=== PATIENT | female | born 1930 | race Caucasian/White ===

== ENCOUNTER 2017-03-30 12:08 | Inpatient (IN) | payer MEDICARE, BC ==
--- NOTE | ~2017-03-30 | XA166 ---
[facility] A Service of [facility] & [facility] RADIOLOGY TEXT RESULTS PATIENT: JO ANN JUAN LOCATION: A - : [birth year] UNIT #: [id number] AGE: [address]: Catia Goel MD SEX: F ORDER DR: [id number] [facility] [address] [place], [place] [address] [id number] I MR#: [id number] Acc #: [id number] NAME: JO ANN JUAN. : 1930 SEX: F STUDY DATE/TIME: 03/31/2017 9:05 UNIT: C3A U ROOM: [facility] STUDY DESCRIPTION: XA PICC Line Placement WO Port Attending Physician: Catia Goel M.D. Ordering Physician: Fern Escoto M.D. Primary Care Physician: Reyna Silva A.P.R.N. MEDICAL IMAGING REPORT This report is preliminary unless electronic signature is present EXAM PICC line placed under ultrasound fluoroscopy HISTORY Long-term IV antibiotic therapy. PRE-PROCEDURE The procedure was explained to the patient and/or patient key account representative including risks, benefits, potential complications and potential for alternative forms of treatment. Informed consent was obtained, and prior to initiating the procedure a formal timeout procedure was performed. PROCEDURE Using full standard sterile barrier technique, including caps, gowns, gloves, masks, as well as sterile skin preparation and standard sterile draping, the right arm was prepped and draped in the usual fashion, and real-time sterile ultrasound guidance was used to localize an arm vein and to confirm vessel patency. Puncture was in the right brachial vein. A hard copy ultrasound image was recorded. After local anesthesia with 1% Xylocaine, the vein was punctured using real-time sterile ultrasound guidance, and an 0.018 guidewire was advanced into the superior vena cava, using fluoroscopic guidance. A 5 Citizen Of [place] dual-lumen PICC was then measured and trimmed to 31 cm and deployed with the tip positioned in the superior vena cava. The position of the line was documented with a radiographic image. The line was secured in place with an adhesive dressing and an antibiotic patch was applied. Total fluoro time was 0.2 minutes. 1 mGy air kerma. A single spot radiograph was obtained. IMPRESSION Successful placement of a 5 Citizen Of [place] dual-lumen PowerPICC via the right arm under ultrasound and fluoroscopic guidance. The tip of the PICC is in STS. [facility] A Service of [facility] RADIOLOGY TEXT RESULTS PATIENT: JO ANN JUAN LOCATION: C3A 301-01 : [birth year] UNIT #: [id number] AGE: [address]: Catia Goel MD SEX: F ORDER DR: good position in the superior vena cava. Dictated by... Teofilo Rudolph M.D. THIS IS AN ELECTRONICALLY VERIFIED REPORT Teofilo Rudolph M.D. at 04/03/2017 9:18 AM TRIXIE/chris TD: 03/31/2017 15:30 JOB #: [id number] MEDICAL IMAGING REPORT Page 1 of 1 COPY
--- NOTE | ~2017-03-30 | CR2 ---
[facility] A Service of [facility] RADIOLOGY TEXT RESULTS PATIENT: JO ANN JUAN LOCATION: [facility] 301- : [birth year] UNIT #: [id number] AGE: [address]: Catia Goel MD SEX: F ORDER DR: [id number] [place] [address] [facility] [place], [place] [address] [id number] I MR#: [id number] Acc #: [id number] NAME: JO ANN JUAN. : 1930 SEX: F STUDY DATE/TIME: 04/01/2017 5:42 [facility]: [facility] STUDY DESCRIPTION: CR Abdomen Acute Series Attending Physician: Catia Goel M.D. Ordering Physician: Fern Escoto M.D. Primary Care Physician: Reyna Silva A.P.R.N. MEDICAL IMAGING REPORT This report is preliminary unless electronic signature is present EXAM Acute abdominal series in 3 views 04/01/2017 COMPARISON 03/31/2017. CLINICAL HISTORY Abdominal pain for 3 days, nausea, vomiting. FINDINGS Persistent dilatation of small bowel in the central midabdomen, minimal colonic gas, question incomplete small bowel obstruction. No interval change since 03/31/2017. Dictated by... Larry Foreman M.D. THIS IS AN ELECTRONICALLY VERIFIED REPORT Larry Foreman M.D. at 04/01/2017 2:12 PM DIANA/emily TD: 04/01/2017 07:28 JOB #: [id number] MEDICAL IMAGING REPORT Page 1 of 1 COPY
--- NOTE | ~2017-03-30 | CO ---
Unit #: [id number] #: [id number] Patient: JO ANN JUAN [id number] [address] [place], [place] [address] [id number] I MR#: [id number] NAME: JO ANN JUAN. ROOM: 301 Age: 86 Sex: F Admission Date: 03/30/2017 : 1930 Attending Physician: Catia Goel M.D. Primary Care Physician: Reyna Silva A.P.R.N. Consultation Date: 04/02/2017 CONSULTATION REPORT REASON FOR CONSULT SVT. HISTORY OF PRESENT ILLNESS This is an 86-year-old female, new to our group with the past medical history of sick sinus syndrome, status post permanent pacemaker by Dr. Gunter. The patient was previously admitted to [facility] in 2012 following a fall versus near syncopal episode. She fractured her hip and underwent hip surgery. She is a DNR. She lives alone and uses a walker to ambulate. 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 She presented to the hospital on 03/30/2017 with complaints of nausea and vomiting. She has also had generalized abdominal pain. There are also reports of dark emesis. She denies fever or chills. In the emergency department, her pulse is 95 with the blood pressure of 143/72. CT of the abdomen revealed findings concerning for small bowel obstruction with inflammatory changes in the small bowel. She was given Zosyn in the emergency department, as well as 1 L of normal saline, 4 mg of morphine and 4 mg of Zofran. She was admitted for further evaluation. She was noted to have episodes of paroxysmal supraventricular tachycardia on telemetry and Cardiology was consulted. There are no reports of chest pain. She denies shortness of breath, PND, or orthopnea. She has had a history of dizziness and near syncope, but not recently. PAST MEDICAL HISTORY 1. Sick sinus syndrome, status post permanent pacemaker in 2012. 2. Admission to [facility] in 2012 following a fall versus near syncopal episode. Underwent surgery for hip fracture. 3. Nonsmoker. PAST SURGICAL HISTORY 1. Hip surgery. 2. Permanent pacemaker. HOME MEDICATIONS None. ALLERGIES No known drug allergies. SOCIAL HISTORY The patient lives alone. She ambulates with a walker. There are no reports of alcohol or illicit drug use. Unit #: [id number] #: [id number] Patient: JO ANN JUAN FAMILY HISTORY Significant for lung cancer. REVIEW OF SYSTEMS A 10-point review of systems negative except for details above in HPI. PHYSICAL EXAMINATION VITAL SIGNS: Temperature 98.5, pulse 74, blood pressure 144/79. CONSTITUTIONAL: This is an 86-year-old female, in no acute distress. SKIN: Warm and dry. NECK: Supple. No jugular vein distention. No carotid reflux. Normal carotid upstrokes. No carotid bruits auscultated. HEART: S1 and S2. Regular rate and rhythm. No murmurs, rubs, or gallops. LUNGS: Bilateral breath sounds. Have good air entry throughout lung colon. Respirations are even and nonlabored. ABDOMEN: Soft, nontender, and nondistended. Positive bowel sounds auscultated x4 quadrants. No ascites noted. EXTREMITIES: Lower extremities have no pretibial pitting edema. DP and PT pulses are 2+. Capillary refill is less than 2 seconds. DIAGNOSTIC STUDIES LABORATORY RESULTS: White blood cell count 8.5, hemoglobin 10.6, hematocrit 33.2, platelets 264. Sodium 140, potassium 3.6, chloride 110, CO2 of 24, BUN 18, creatinine 0.6, glucose 151, magnesium 1.9, calcium 7.9, phosphorus 2.3, total protein 6, albumin 2.7, total bilirubin 0.9, direct bilirubin 0.3, indirect bilirubin 1.3, AST 20, ALT 18, alkaline phos 85, amylase 17, lipase 15. Troponin 0.06 and 0.06. Lactic acid 1.6. Triglycerides 151, TSH 12.52. Urinalysis 1+ protein. IMAGING STUDIES: CT of the abdomen and pelvis with contrast on 03/30/2017 revealed 12 to 13 cm thickened and inflamed segment of small bowel in the mid to lower abdomen. Findings suggestive of inflammatory bowel disease versus infectious process. There is a small bowel obstruction proximal to the segment of the small bowel loops measuring up to 3.7 cm. Focally inflamed structure just inferior to the gallbladder fossa along the second portion of duodenum. This is favored to represent focal duodenal diverticulitis. There are other uncomplicated diverticula in the segment between the duodenum and the head of the pancreas. It is also possible that this structure could represent irregular gallbladder, correlate with the patient's operative history. Right upper quadrant ultrasound reveals gallbladder not clearly visualized. No biliary dilation. Liver unremarkable. X-ray of the abdomen on 03/31/2017 reveals NG tube in the proximal stomach. Dilated loops of small bowel in the central and right abdomen with colonic gas present. Radionuclide biliary scan on 03/31/2017 is abnormal. Please see details in report. X-ray of the abdomen on 04/01/2017 reveals persistent dilatation of the small bowel. CARDIOVASCULAR STUDIES: Electrocardiogram reveals sinus rhythm with PAC. Left bundle-branch block. T-wave abnormality in the lateral leads. Unit #: [id number] #: [id number] Patient: JO ANN JUAN IMPRESSION 1. Small-bowel obstruction. 2. Status post permanent pacemaker for sick sinus syndrome. 3. Paroxysmal supraventricular tachycardia. 4. Hypothyroidism. PLAN 1. The patient presented to the hospital for abdominal pain. She was admitted for small bowel obstruction. 2. She was found to have paroxysmal supraventricular tachycardia on telemetry and Cardiology was consulted. 3. 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 She is feeling better and is requesting to be discharged home. Again, she has been advised to consider thyroid supplement and small dose of beta blockers, but she refuses. 4. No further cardiac workup is planned. The patient can go home from a cardiac standpoint. Dictated by... Lilo Mac APRN for Cheyanne Burton TD: 04/05/2017 13:29 JOB #: [id number] CONSULTATION REPORT Page 1 of 1 X X CONSULTATION REPORT
--- NOTE | ~2017-03-30 | A ---
[facility] Nutrition Therapy DATE: 04/01/17 Patient: JO ANN JUAN Physician: ANYI Address: [address] Room/Bed: [address] [place] [address], Zip: [place] [address] Admit Date: 03/30/17 Date of : [birth year] Height: 5 7 Weight: 136 62 NUTRITIONAL ASSESSMENT: REASON: TPN consult Admitting dx: 86 y/o female admitted with N/V and no BM x 5 days, found to have SBO PMH: Pacemaker Anthropometrics: Ht: 67", Wt: 62 kg (136 lbs), BMI: 21 (normal) Labs: Glucose 181, BUN 24, Phos 2.1, glucose POC 168-199, Triglycerides 151 Meds: Lei prn, MgSO4, Kcl, Phenol-sodium, PPI, Mylanta, IV Abx, NSIV @ 60 ml/hr I/O & Bowel function: Last BM 03/28 (small), - flatus, abdomen firm/distended, NGT to LWS Skin Integrity: No issues, no edema Estimated Nutrition Needs: 4732-1343 kcals/day (25-30 kcals/kg) 62-74 g protein/day (1-1.2 g/kg) Fluids consistent with kcal needs or per MD Assessment: Chart reviewed, events noted. See admitting dx and PMH as stated above. Pt found to have SBO on CT scan and duodenal diverticulitis vs irregular gallbladder. She normally follows a regular diet at home however has not eaten much in the past 5 days due to her GI sx, which worsened with oral intake. She scored 1 point on the malnutrition risk screen for eating poorly, no past weights available and she is unsure of any weight loss. Hyponatremia on admission, now resolved. She has an NGT to LWS, - flatus at this time. MD ordered to start TPN, she is currently on a clear liquid diet as of today, was NPO 6/7-8. Note hypophosphatemia and hyperglycemia. See RD recs below, will follow. Dx: Inadequate energy intake r/t clinical diagnosis AEB NPO/clear liquids x 3 days, need for parenteral nutrition support. Intervention: TPN, Phos replacement Monitoring, Evaluation and Goals: 1. Tolerance of oral diet advancement without significant s/s of N/V/abdominal pain. 2. Nutrition support consistent with estimated needs. 3. Labs WNL (glucose < 200, lytes & triglycerides WNL). 4. Prevent unintentional weight loss. [facility] Nutrition Therapy DATE: 04/01/17 Patient: JO ANN JUAN Physician: ANYI Address: [address] [place] [address] [address] Room/Bed: [address] [place] [address], Zip: [place] [address] Admit Date: 03/30/17 Date of : [birth year] Height: 5 7 Weight: 136 62 5. Promote regular BM's. Monitor: Per protocol, criteria to determine if above goals met Recommendations: 1. Replace Phos before starting TPN. 2. Advance oral diet as tolerated to GI soft. 3. RD agrees TPN is indicated, recommendations are as follows: Standard 25% dextrose, 5% AA solution; start @ 30 ml/hr and increase by 10 ml q 6 hours until goal rate of 55 ml/hr is reached. Add 20% 250 ml lipids q 48 hours to prevent fatty acid deficiency and help meet kcal needs. This TPN regimen will provide: -1122 dextrose kcals (GUR = 3.7) -66 g protein (1.1 g/kg; meets estimated needs) =1386 total kcals on non-lipid days / 1886 total kcals on lipid days (average 3334-4516 total kcals/day based on receiving lipids 3-4 x per week, which meets the patient's estimated kcal needs) 4. Closely monitor lytes and aggressively replete to WNL prn. Monitor triglycerides and glucose and consider adding insulin regimen if hyperglycemia persists. 5. IVF per . RD will follow hospital course Moderate-severe nutrition risk Respectfully, Diana Montano, MARCELINO, LD [employer] [facility] [employer] [place] [facility] cc: client file
--- NOTE | ~2017-03-30 | HP ---
Unit #: [id number] #: [id number] Patient: JO ANN JUAN [id number] [facility] [address] [facility]. [place], [place] [address] [id number] I MR#: [id number] NAME: JO ANN JUAN. ROOM: 301 Age: 86 Sex: F Admission Date: 03/30/2017 : 1930 Attending Physician: Fern Escoto M.D. Primary Care Physician: Reyna Silva A.P.R.N. HISTORY AND PHYSICAL CHIEF COMPLAINT Nausea and vomiting. HISTORY OF PRESENT ILLNESS The patient is an 86-year-old female with a past medical history of pacemaker placement who presented to the emergency department for evaluation of the above. The patient states that she was in her usual state of health until March 26 when she developed abdominal cramping. She states that it has been "everywhere." It has been somewhat intermittent in nature. It is exacerbated by eating. There are no alleviating factors. She has had nausea and vomiting. She reports four to five bouts of dark emesis within the past 24 hours. She had a small bowel movement yesterday morning. She has not passed any gas since that time. She denies any fever and no cough or cold symptoms. She denies any burning with urination. In the emergency department, initial pulse and blood pressure were 95 and 143/72, respectively. CT of the abdomen showed findings concerning for small bowel obstruction with inflammatory changes of the small bowel. She was given Zosyn in the emergency department, as well as one liter of normal saline, 4 mg of morphine, and 4 mg of Zofran. She is being admitted to [facility] for evaluation and further treatment. PAST MEDICAL HISTORY 1. Admission to [facility] in 2012 following a fall versus near syncopal episode. She apparently fractured her hip and underwent surgery during that admission. She also underwent pacemaker placement during that admission. 2. Presumably sick sinus syndrome status post pacemaker placement followed by Dr. Gunter. PAST SURGICAL HISTORY 1. Hip surgery. 2. Pacemaker placement. SOCIAL HISTORY The patient lives alone. She walks with a walker. There is no tobacco or alcohol use. Her code status is a Do Not Resuscitate. FAMILY HISTORY Notable for her dad having lung cancer. Unit #: [id number] #: [id number] Patient: JO ANN JUAN ALLERGIES No known allergies. HOME MEDICATIONS None. REVIEW OF SYSTEMS A complete review of systems is negative except as indicated in the History of Present Illness. PHYSICAL EXAMINATION VITAL SIGNS: Temperature is 98.6, pulse 75, respirations 16, blood pressure 143/72, and oxygen saturation is 95% on room air. GENERAL: Patient is a female who is awake, alert, and in no acute distress. HEENT: Head is atraumatic. Mucous membranes are moist. NECK: Supple. Trachea is midline. CARDIOVASCULAR: Regular rate and rhythm. LUNGS: Clear to auscultation bilaterally with no increased work of breathing. ABDOMEN: Mildly distended. Bowel sounds are somewhat decreased. She is mildly tender to palpation throughout. EXTREMITIES: Nontender with no pedal edema. NEUROLOGIC: Patient is awake and alert. She follows commands. PSYCHIATRIC: Mood and affect are normal. Patient is cooperative. SKIN: Skin of examined areas is warm and dry. DIAGNOSTIC STUDIES LABORATORY: Complete blood count notable for white blood cell count of 13.3. Comprehensive metabolic panel notable for sodium of 133, chloride 94, BUN and creatinine 45 and 1, respectively, alkaline phosphatase 125, and albumin 3.3. Amylase and lipase are normal. IMAGING: CT of the abdomen and pelvis shows a small bowel obstruction with inflammation involving the small bowel. Possible duodenal diverticulitis versus irregular gallbladder. ASSESSMENT The patient is an 86-year-old female with: 1. Small bowel obstruction. The patient received one liter of normal saline in the emergency department, as well as morphine and Zofran. She has never had any intraabdominal surgeries. 2. Duodenal diverticulitis versus irregular gallbladder. The patient received Zosyn in the emergency department. 3. Sepsis. 4. Mild hyponatremia with a sodium of 133. 5. Status post pacemaker placement presumably for sick sinus syndrome. PLAN 1. Admit to intermediate level. 2. N.p.o. 3. Normal saline at 75 mL/hour. 4. NG tube to low wall suction. 5. P.r.n. morphine. 6. P.r.n. Zofran. 7. Consult [facility] regarding small bowel obstruction. 8. Blood cultures x2. Unit #: [id number] #: [id number] Patient: JUAN,JO ANN B 9. Sepsis protocol with lactic acid. 10. Zosyn pending further workup. 11. Right upper quadrant ultrasound for further evaluation of possible abnormal gallbladder. 12. Check EKG and cardiac enzymes. 13. Repeat labs in the morning. 14. SCDs for DVT prophylaxis. 15. Additional workup and consultants based on above. 16. Regarding code status, the patient is a Do Not Resuscitate. 1. Dictated by Fern Escoto M.D. AW/rosalva TD: 03/30/2017 19:01 JOB #: [id number] HISTORY AND PHYSICAL Page 1 of 1 X Fern Escoto MD X HISTORY AND PHYSICAL
--- NOTE | ~2017-03-30 | DS ---
Unit #: [id number] #: [id number] Patient: JO ANN JUAN [id number] [place], [place] [address] [id number] I MR#: [id number] NAME: JO ANN JUAN. ROOM: 301 Age: 86 Sex: F Admission Date: 03/30/2017 : 1930 Discharge Date: Attending Physician: Catia Goel M.D. Primary Care Physician: Reyna Silva A.P.R.N. DISCHARGE SUMMARY DISCHARGE DIAGNOSES 1. Small bowel obstruction. 2. Questionable acute cholecystitis versus duodenal diverticulitis. 3. Sick sinus syndrome, status post pacemaker. 4. Hypothyroidism. 5. Hypophosphatemia. 6. Questionable memory loss. 7. Hypocalcemia. 8. Mild protein malnutrition. 9. Underweight with moderate calorie malnutrition. CONSULTATION 1. Dr. Ribera. 2. Dr. Rojo. PROCEDURES None. LAB DATA Sodium 140, potassium 3.6, creatinine 0.6, calcium 7.9, phosphorus 2.3, magnesium 1.9, WBC 8.5, hemoglobin 10.6, platelets 264. HIDA scan shows abnormal examination with abnormal non-filling of the gallbladder concerning for acute cholecystitis. KUB shows persistent dilatation and complete small bowel obstruction possible. TSH 12.52. CT of the abdomen and pelvis shows 12 to 13 mm thickened small bowel present. Also, inflamed duodenum, likely duodenal diverticulitis. ALLERGIES None. DISCHARGE MEDICATIONS 1. Zofran 4 mg q.6 p.r.n. nausea. 2. Lortab 5 mg p.o. q.4 p.r.n. pain. HOSPITALIZATION COURSE 86-year-old admitted because of nausea and vomiting. Unit #: [id number] #: [id number] Patient: JO ANN JUAN Acute cholecystitis with nausea and vomiting: Also, patient has partial small bowel obstruction and likely duodenal diverticulitis. The patient was seen by [facility]. Patient was kept NPO and NG-suction given but patient refused NG suctioning. Currently, she is refusing any kind of surgery. She does not want any antibiotics. She does not want any medications. 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 She wants to go home. Sister is at bedside. They agree for her to go home with hospice. I talked to rn case manager hospice. She is going to arrange hospice to come visit her at home. Patient refusing all medications. I am going to give Zofran and Lortab p.r.n. to take home. She is currently DNR and hospice care. Sick sinus syndrome: The patient was seen by cardiology. Hypothyroidism: Patient is refusing any medicine now. She was on Synthroid. Hypophosphatemia: Replaced with IV phosphorus. Moderate protein malnutrition with moderate calorie malnutrition with underweight: Patient needs high calorie diet but currently she is refusing any kind of treatment. Discussed with sister. They agreed with hospice because patient wants to go home with hospice. Discussed with Dr. Rojo and Dr. Ribera. They agree with going home. The patient will be discharged home with hospice to visit her at home. Discharge time taken is 45 minutes. Dictated by... Cheyanne Warren/sukhi TD: 04/02/2017 13:30 JOB #: [id number] DISCHARGE SUMMARY Page 1 of 1 X Naya Boggs MD X DISCHARGE SUMMARY
--- NOTE | ~2017-03-30 | NM21 ---
[facility] A Service of [facility] & [facility] RADIOLOGY TEXT RESULTS PATIENT: JO ANN JUAN LOCATION: [facility] 301- : [birth year] UNIT #: [id number] AGE: [address]: Catia Goel MD SEX: F ORDER DR: [id number] [facility] [address] [place], [place] [address] [id number] I MR#: [id number] Acc #: [id number] NAME: JO ANN JUAN. : 1930 SEX: F STUDY DATE/TIME: 03/31/2017 11:37 UNIT: [address] ROOM: Formerly named [facility] STUDY DESCRIPTION: NM Hepatobiliary W GB Attending Physician: Catia Goel M.D. Ordering Physician: Fern Escoto M.D. Primary Care Physician: Reyna Silva A.P.R.N. MEDICAL IMAGING REPORT This report is preliminary unless electronic signature is present EXAM Radionuclide biliary scan, 03/31/17 HISTORY Stomach cramping, nausea, vomiting of brown fluid, bloating, lightheadedness since 03/26/17. TECHNIQUE Following intravenous administration 4.95 mCi technetium-99m Choletec, static images of the abdomen were obtained at 15-minute intervals over 60 minutes. Additional imaging obtained at 90 and 120 minutes post tracer administration. FINDINGS There is homogeneous distribution of radiotracer throughout the liver at 15 minutes post administration. Radiotracer is seen in common bile duct at 15 minutes post administration. Radiotracer is seen in what appears to be the duodenum at 30 minutes post administration. During the remainder of the study, tracer continues to accumulate in the small bowel. No normal gallbladder seen. CT examination 03/30/17 showed a 3.1 cm inflamed structure just inferior to the gallbladder fossa. No normal gallbladder is seen on the prior CT examination. Patient gives no history of cholecystectomy. I believe an area of relative photopenia between the common bile duct and the small bowel is nonfilling gallbladder. Findings particularly in conjunction with the CT examination, strongly concerning for acute cholecystitis. IMPRESSION 1. Abnormal examination. Please see the complete dictation above for full details. No normal gallbladder is seen. Contrast is seen in liver and common bile duct at 15 minutes post administration and in small bowel at 30 minutes post administration. A radionuclide-containing structure along the right hemiabdomen [facility]. [facility] A Service of [facility] & [facility] RADIOLOGY TEXT RESULTS PATIENT: JO ANN JUAN LOCATION: [facility] 301-01 : [birth year] UNIT #: [id number] AGE: [address]: Catia Goel MD SEX: F ORDER DR: inferior to the liver corresponds to proximal duodenum seen on CT examination, particularly on the coronal reconstructed images. I believe an area of relative photopenia between this portion of small bowel and the common bile duct is abnormal nonfilling gallbladder corresponding to the inflamed structure seen on earlier CT examination. No extraluminal radiotracer is seen. Again, findings most concerning for acute cholecystitis. Dictated by... Teofilo Wellington M.D. THIS IS AN ELECTRONICALLY VERIFIED REPORT Teofilo Wellington M.D. at 04/01/2017 5:58 PM MONICA/lenny TD: 03/31/2017 20:52 JOB #: [id number] MEDICAL IMAGING REPORT Page 1 of 1 COPY
--- NOTE | ~2017-03-30 | CR2 ---
[facility] A Service of [facility] RADIOLOGY TEXT RESULTS PATIENT: JO ANN JUAN LOCATION: [facility] 301- : [birth year] UNIT #: [id number] AGE: [address]: Catia Goel MD SEX: F ORDER DR: [id number] [facility] [address]. [place], [place] [address] [id number] I MR#: [id number] Acc #: [id number] NAME: JO ANN JUAN. : 1930 SEX: F STUDY DATE/TIME: 03/31/2017 08:28 UNIT: C3A PCU ROOM: [facility] STUDY DESCRIPTION: CR Abdomen Acute Series Attending Physician: Catia Goel M.D. Ordering Physician: Fern Escoto M.D. Primary Care Physician: Reyna Silva A.P.R.N. MEDICAL IMAGING REPORT This report is preliminary unless electronic signature is present EXAM Acute abdomen series, 03/31/2017 at 08:28 hours HISTORY 86-year-old woman with nausea, vomiting, cramping abdominal pain and gastrointestinal bleeding since yesterday. COMPARISON None FINDINGS Upright view of the chest demonstrates normal heart size with a tortuous aorta. The lungs are clear and there are no effusions. Supine and upright views of the abdomen demonstrate a nasogastric tube in the proximal stomach with sidehole just beyond the GE junction. There is a nonspecific bowel gas pattern with gas seen in both small bowel and colon. There a few dilated loops of small bowel in the central abdomen towards the right, likely corresponding to the dilated loops seen on yesterday's CT. No radiopaque stones are seen. IMPRESSION 1. Nasogastric tube tip in the proximal stomach with sidehole just beyond the GE junction. 2. There are dilated loops of small bowel in the central and right abdomen with definite colonic gas present. Loops appear similar to yesterday's CT scan. No definite suspicious calcifications are seen. Dictated by... Yulia Doherty M.D. THIS IS AN ELECTRONICALLY VERIFIED REPORT Yulia Doherty M.D. at 03/31/2017 2:30 PM MARGAUX/chris [facility] A Service of [facility] RADIOLOGY TEXT RESULTS PATIENT: JO ANN JUAN LOCATION: [facility] 301-01 : [birth year] UNIT #: [id number] AGE: [address]: Catia Goel MD SEX: F ORDER DR: TD: 03/31/2017 11:19 JOB #: [id number] MEDICAL IMAGING REPORT Page 1 of 1 COPY
--- NOTE | ~2017-03-30 | CO ---
Unit #: [id number] #: [id number] Patient: JO ANN LOPEZ [id number] [address] [place], [place] [address] [id number] I MR#: [id number] NAME: JO ANN LOPEZ. ROOM: 301 Age: 86 Sex: F Admission Date: 03/30/2017 : 1930 Attending Physician: Catia Goel M.D. Primary Care Physician: Reyna Silva A.P.R.N. Consultation Date: 03/31/2017 CONSULTATION REPORT REASON FOR CONSULTATION 1. Small-bowel obstruction. 2. Inflamed area of right upper quadrant. HISTORY OF PRESENT ILLNESS Thank you very much for asking us to see Ms. Lopez. She is an 87-year-old white female, who has never had previous abdominal surgery. She states that 5 to 6 days ago, she developed crampy abdominal pain, nausea, and vomiting. She has been vomiting dark brownish liquid. She has not seen any blood. She has had minimal bowel movements in the last several days, which is abnormal for her. She has seen no lower GI bleeding. She has had no or pulmonary symptoms. She came to the emergency room for further evaluation. At that time, a CT scan with contrast was performed. This revealed an inflamed 3.1 cm structure in the right upper quadrant near the gallbladder fossa. No gallbladder was seen. It was felt to possibly be inflamed gallbladder versus duodenal diverticulum. In addition, she had what appears to be a small bowel obstruction secondary to an inflamed 12 to 13 cm segment of small bowel in the mid ileum. She presents at this time for further evaluation and treatment. PAST MEDICAL HISTORY Sick sinus syndrome with pacemaker placement. PAST SURGICAL HISTORY Hip surgery and pacemaker placement. SOCIAL HISTORY Lives alone. No tobacco or alcohol use. Uses a walker. FAMILY HISTORY Father had lung cancer. ALLERGIES No known medical allergies. HOME MEDICATIONS None. REVIEW OF SYSTEMS Negative except for above. IMMUNIZATION STATUS Unknown. Unit #: [id number] #: [id number] Patient: JO ANN LOPEZ PHYSICAL EXAMINATION GENERAL: Well-developed, well-nourished white female, in no apparent distress. VITAL SIGNS: Afebrile. Vital signs stable. HEENT: NG tube was in place evacuating dark brown liquid. NECK: Supple. No thyromegaly or adenopathy. BACK: No CVA or spinous tenderness. ABDOMEN: Distended, but soft. No rebound, peritoneal signs, or masses. No hernias are palpable. She has some mild diffuse tenderness, but is not very extensive. DIAGNOSTIC STUDIES LABORATORY RESULTS: Reveal the patient to have a CMP that is remarkable for BUN of 45 on admission and is down to 37, sodium 131, potassium 3.4, chloride 98, CO2 of 21. Liver function tests are normal. Amylase and lipase are normal. Lactic acid level is 1.6. Her white count was 13 during admission and now 10.8, hemoglobin of 11.2, hematocrit 34.5, MCV is 84.3, platelet count 245,000. IMPRESSION An 87-year-old female with an inflamed area in the right upper quadrant. On CT scan, there was a 3.1 cm area that could be gallbladder versus a duodenal diverticulum. It is notable that on ultrasound, no gallbladder was seen. It could possibly be contracted. Small-bowel obstruction was found to be secondary to an inflamed 12 to 13 cm segment of small bowel. We have explained to the patient that we recommend IV fluids, IV antibiotics, nasogastric tube decompression. Because she has not eaten for approximately a week and even if she had quick resolution, she would not eat a full regular diet for several days. We recommend TPN for nutritional support. We will place a PICC line and start TPN today per pharmacy. We will check a HIDA scan to try and visualize the patient's gallbladder as well as repeat abdominal x-rays today. The patient states that SCDs bother her legs, so we will place her on Lovenox. She knows that if her small-bowel obstruction does not resolve, she may need operative intervention with exploratory laparotomy, and possibly even bowel resection. It could be that the inflamed structure in the right upper quadrant and the small-bowel obstruction are related and could be secondary to some type of a gallbladder ileus with fistulization from the gallbladder into the duodenum. All this has been explained to the patient in detail as well. Dictated by... Layo Mirza M.D. AIDA/sonal TD: 04/01/2017 02:16 JOB #: [id number] CC: [facility] Unit #: [id number] #: [id number] Patient: JO ANN LOPEZ CONSULTATION REPORT Page 1 of 1 X Layo Mirza MD CONSULTATION REPORT
--- NOTE | ~2017-03-30 | CT2 ---
[facility] A Service of [facility] & [facility] RADIOLOGY TEXT RESULTS PATIENT: JO ANN JUAN LOCATION: [facility] 301- : [birth year] UNIT #: [id number] AGE: [address]: Catia Goel MD SEX: F ORDER DR: [id number] [facility] [address] [place], [place] [address] [id number] I MR#: [id number] Acc #: [id number] NAME: JO ANN JUAN. : 1930 SEX: F STUDY DATE/TIME: 03/30/2017 14:53 [facility] ROOM: [facility] STUDY DESCRIPTION: CT Abd and Pelv W Cont Attending Physician: Catia Goel M.D. Ordering Physician: Titus Barth M.D. Primary Care Physician: Reyna Silva A.P.R.N. MEDICAL IMAGING REPORT This report is preliminary unless electronic signature is present REVISED REPORT SEE ADDENDA EXAM CT abdomen and pelvis with contrast INDICATIONS Nausea, vomiting for the past 5 days. Mid to lower right-sided abdominal pain for the past 5 days. PROCEDURE Contrast-enhanced CT of the abdomen and pelvis. This CT exam was performed with one or more of the following radiation dose reduction techniques: automatic exposure control, adjustment of mA and/or kV according to patient size, and iterative reconstruction. COMPARISON None FINDINGS ABDOMEN WITH CONTRAST: The liver, spleen, kidneys, adrenal glands are unremarkable. Small hiatal hernia. There is an inflamed structure just inferior to the gallbladder fossa that measures 3.1 cm. It is not entirely clear on this study whether this is the gallbladder or possibly a duodenal diverticulum. There are other duodenal diverticula between the duodenum and the pancreatic head. Otherwise, the pancreas has a normal appearance. Extensive uncomplicated left-sided colonic diverticulosis. There is a segment of small bowel in the mid to lower abdomen that measures approximately 12-13 cm in length. This segment is thickened and shows inflammatory change. There is evidence for small bowel obstruction proximal to this segment, with the small bowel loops measuring up to 3.7 cm. There is some reactive fluid [facility] A Service of [facility] RADIOLOGY TEXT RESULTS PATIENT: JO ANN JUAN LOCATION: [facility] 301-01 : [birth year] UNIT #: [id number] AGE: [address]: Catia Gole MD SEX: F ORDER DR: around the inflamed bowel loop, but no evidence for an organized abscess or free air. PELVIS WITH CONTRAST: Previous hysterectomy. No pelvic mass. No aggressive-appearing bone lesion. Right hip arthrosis. IMPRESSION 1. A 12-13 cm thickened and inflamed segment of small bowel in the mid to lower abdomen. Findings are suspicious for inflammatory bowel disease, but could also be related to infectious process. There is small bowel obstruction proximal to this segment with the small bowel loops measuring up to 3.7 cm. 2. A focally inflamed structure just inferior to the gallbladder fossa along the second portion of the duodenum. This is favored to represent focal duodenal diverticulitis. There are other uncomplicated diverticula in this segment between the duodenum and the head of the pancreas. It is also possible that this structure could represent an irregular gallbladder. Correlate with patient's operative history. Dictated by... Srinivas Melgoza M.D. THIS IS AN ELECTRONICALLY VERIFIED REPORT Srinivas Melgoza M.D. at 03/31/2017 2:23 PM NICO/ady TD: 03/30/2017 18:18 JOB #: [id number] ADDENDUM EXAM CT abdomen and pelvis with contrast. DATE OF SERVICE 03/30/17 ADDENDUM Upon further review, there is a radiolucent structure in the distal small bowel, measuring approximately 1.2 cm right at the transition point. Given combination of this finding and findings in the gallbladder fossa, findings are most suspicious for gallstone ileus. This finding was discussed with the patient's nurse at the time of this dictation, who voiced that she would relay these findings to physicians caring for the patient. [facility] A Service of [facility] RADIOLOGY TEXT RESULTS PATIENT: JO ANN JUAN LOCATION: [facility] 301- : [birth year] UNIT #: [id number] AGE: [address]: Catia Goel MD SEX: F ORDER DR: Dictated by... Cheyanne Canales TD: 03/30/2017 23:08 JOB #: [id number] ADDENDUM #[address] abdomen and pelvis with contrast DATE OF SERVICE 03/30/2017. ADDENDUM Overall the above findings are suspicious for gallstone ileus, with an approximately 10 mm radiolucent stone in the small bowel acting as the transition point for the patient's small bowel obstruction. This information was originally placed in an addendum on the date of the initial interpretation, however, after reviewing the patient's record does not appear to have been transcribed. Dictated by... Srinivas Melgoza M.D. THIS IS AN ELECTRONICALLY VERIFIED REPORT Srinivas Melgoza M.D. at 04/04/2017 7:11 AM Berry TD: 04/01/2017 17:45 JOB #: [id number] MEDICAL IMAGING REPORT Page 1 of 1 COPY
--- NOTE | ~2017-03-30 | US6 ---
[facility] A Service of [facility] RADIOLOGY TEXT RESULTS PATIENT: JO ANN JUAN LOCATION: [facility] : [birth year] UNIT #: [id number] AGE: [address]: Catia Goel MD SEX: F ORDER DR: [id number] [facility] [address]. [place], [place] [address] [id number] I MR#: [id number] Acc #: [id number] NAME: JO ANN JUAN. : 1930 SEX: F STUDY DATE/TIME: 03/30/2017 20:04 UNIT: [address] ROOM: [facility] STUDY DESCRIPTION: US Abdominal Limited Attending Physician: Fern Escoto M.D. Ordering Physician: Fern Escoto M.D. Primary Care Physician: Reyna Silva A.P.R.N. MEDICAL IMAGING REPORT This report is preliminary unless electronic signature is present EXAM Right upper quadrant ultrasound HISTORY Right quadrant pain for 5 days. FINDINGS Ultrasound examination of the right upper quadrant demonstrates non-visualization of the gallbladder. The gallbladder may be contracted, as the gallbladder was probably contracted on CT earlier today. Please see CT report. No hepatic abnormalities identified. The common bile duct measures approximately 4 mm in diameter. Survey of the right kidney is unremarkable. IMPRESSION 1. The gallbladder is not clearly visualized and the gallbladder may be contracted. Please refer to CT abdomen earlier today. 2. No biliary dilatation. 3. Liver is unremarkable. Dictated by... Jarvis Shields M.D. THIS IS AN ELECTRONICALLY VERIFIED REPORT Jarvis Shields M.D. at 03/31/2017 3:18 PM DFL/pcl TD: 03/30/2017 23:02 JOB #: [id number] MEDICAL IMAGING REPORT [facility] A Service of [facility] RADIOLOGY TEXT RESULTS PATIENT: JO ANN JUAN LOCATION: [facility] : [birth year] UNIT #: [id number] AGE: [address]: Catia Goel MD SEX: F ORDER DR: Page 1 of 1 COPY
--- NOTE | ~2017-03-30 | EKG ---
PATIENT: JO ANN JUAN UNIT #: [id number] Ventricular Rate: 84 BPM Atrial Rate: 84 BPM P-R Interval: 162 ms QRS Duration: 130 ms Q-T Interval: 404 ms QTC Calculation(Bezet): 477 ms P Connelly: 39 degrees Calculated R Connelly: -7 degrees Calculated T Connelly: 125 degrees Diagnosis Line: Sinus rhythm with Premature atrial complexes Diagnosis Line: Left bundle branch block Diagnosis Line: Possible Inferior infarct , age undetermined Diagnosis Line: Cannot rule out Anteroseptal infarct , age Diagnosis Line: undetermined Diagnosis Line: T wave abnormality, consider lateral ischemia Diagnosis Line: Abnormal ECG Diagnosis Line: No previous ECGs available Diagnosis Line: Confirmed by MARQUITA ROSE MD ([id number]) on 03/31/2017 Diagnosis Line: 6:39:53 PM INTERPRETING MD: ROSE ROBLES
[2017-03-30] MEDS ORDERED: NO MEDICATIONS (12:29)
[2017-03-30 13:03] LABS: BASOPHIL% 0.2 % (0-2.5); EOSINOPHIL# 0.1 X10e3 (0-0.7); EOSINOPHIL% 0.8 % (0.0-7.0); HEMATOCRIT 41.7 % (35.0-45.0); HEMOGLOBIN 13.3 gm/dL (12.0-16.0); LYMPHOCYTE# 0.4 X10e3 (1.0-3.5); LYMPHOCYTE% 3.2 % (17.0-45.0); MEAN CELL VOLUME 84.2 FL (83-96); MEAN CORPUSCULAR HEMOGLOBIN 26.8 PG (28-34); MEAN CORPUSCULAR HGB CONC 31.8 g/dL (30-36); MEAN PLATELET VOLUME 7.7 FL (6.5-11.5); MONOCYTE# 0.3 X10e3 (0-1.0); MONOCYTE% 2.5 % (3.0-12.0); NEUTROPHIL# 12.4 X10e3 (1.5-7.1); NEUTROPHIL% 93.3 % (40-75); PLATELET COUNT 306 X10e3 (140-420); RED BLOOD COUNT 4.96 X10e (3.90-5.30); RED CELL DISTRIBUTION WIDTH 15.7 % (11.0-15.5); WHITE BLOOD COUNT 13.3 X10e3 (4.0-10.5)
[2017-03-30 13:06] LABS: DIFF IND NO
[2017-03-30 13:26] LABS: ALBUMIN SERUM 3.3 g/dL (3.5-5.0); BILIRUBIN, DIRECT 0.3 mg/dL (0.0-0.2); BILIRUBIN,INDIRECT 1.3 mg/dL (0.0-0.9); BILIRUBIN,TOTAL 1.6 mg/dL (0.2-2.0); CALCIUM SERUM 8.9 mg/dL (8.4-10.2); GLOM FILT RATE Estimated 50.6 mL/min (>60); POTASSIUM 3.6 mmol/L (3.5-5.1); PROTEIN TOTAL SERUM 7.4 g/dL (6.0-8.3)
[2017-03-30 17:42] LABS: CK TOTAL 20 IU/L (26-140)
[2017-03-30 23:12] LABS: CK TOTAL 23 IU/L (26-140)
[2017-03-31 05:43] LABS: BASOPHIL% 0.1 % (0-2.5); EOSINOPHIL# 0.5 X10e3 (0-0.7); EOSINOPHIL% 4.6 % (0.0-7.0); HEMATOCRIT 34.5 % (35.0-45.0); LYMPHOCYTE# 1.2 X10e3 (1.0-3.5); LYMPHOCYTE% 11.1 % (17.0-45.0); MEAN CELL VOLUME 84.3 FL (83-96); MEAN CORPUSCULAR HEMOGLOBIN 27.2 PG (28-34); MEAN CORPUSCULAR HGB CONC 32.3 g/dL (30-36); MEAN PLATELET VOLUME 7.6 FL (6.5-11.5); MONOCYTE# 0.8 X10e3 (0-1.0); MONOCYTE% 7.7 % (3.0-12.0); NEUTROPHIL# 8.2 X10e3 (1.5-7.1); NEUTROPHIL% 76.5 % (40-75); PLATELET COUNT 245 X10e3 (140-420); RED BLOOD COUNT 4.09 X10e (3.90-5.30); RED CELL DISTRIBUTION WIDTH 15.6 % (11.0-15.5); WHITE BLOOD COUNT 10.8 X10e3 (4.0-10.5)
[2017-03-31 06:08] LABS: DIFF IND NO; HEMOGLOBIN 11.2 gm/dL (12.0-16.0)
[2017-03-31 06:27] LABS: ALBUMIN SERUM 2.4 g/dL (3.5-5.0); BILIRUBIN,TOTAL 1.7 mg/dL (0.2-2.0); BUN/CREATININE RATIO 41.11; CALCIUM SERUM 7.8 mg/dL (8.4-10.2); CREATININE SERUM 0.9 mg/dL (0.6-1.4); GLOM FILT RATE Estimated 57.5 mL/min (>60); POTASSIUM 3.4 mmol/L (3.5-5.1); PROTEIN TOTAL SERUM 5.2 g/dL (6.0-8.3)
[2017-03-31 11:57] LABS: URINE SOURCE CLEAN CATCH
[2017-03-31 12:09] LABS: URINE APPEARANCE CLEAR; URINE BILIRUBIN NEG (NEG); URINE BLOOD TRACE (NEG); URINE COLOR DK YELLOW; URINE GLUCOSE NEG (NEG); URINE KETONE 3+ (NEG); URINE LEUKOCYTE ESTERASE NEG (NEG); URINE NITRATE NEG (NEG); URINE PH 5.5 (5-8); URINE PROTEIN 1+ (NEG)
[2017-03-31 12:11] LABS: URINE BACTERIA AUWI NEG (NEGATIVE); URINE SQUAMOUS EPITHELIAL CELL OCC /[HPF]
[2017-03-31 12:36] LABS: CULTURE INDICATED? NO
[2017-03-31 12:37] LABS: URINE GRANULAR CAST 0-2 /[HPF]
[2017-04-01 06:18] LABS: HEMATOCRIT 34.7 % (35.0-45.0); HEMOGLOBIN 11.2 gm/dL (12.0-16.0); MEAN CELL VOLUME 84.3 FL (83-96); MEAN CORPUSCULAR HEMOGLOBIN 27.2 PG (28-34); MEAN CORPUSCULAR HGB CONC 32.2 g/dL (30-36); MEAN PLATELET VOLUME 7.8 FL (6.5-11.5); RED BLOOD COUNT 4.12 X10e (3.90-5.30); RED CELL DISTRIBUTION WIDTH 15.9 % (11.0-15.5); WHITE BLOOD COUNT 8.9 X10e3 (4.0-10.5)
[2017-04-01 07:14] LABS: ALBUMIN SERUM 2.7 g/dL (3.5-5.0); BILIRUBIN,TOTAL 0.9 mg/dL (0.2-2.0); BUN/CREATININE RATIO 34.28; CALCIUM SERUM 8.1 mg/dL (8.4-10.2); CREATININE SERUM 0.7 mg/dL (0.6-1.4); GLOM FILT RATE Estimated 77.9 mL/min (>60); MAGNESIUM 2.1 mg/dL (1.6-3.0); PHOSPHOROUS 2.1 mg/dL (2.5-4.6); POTASSIUM 3.7 mmol/L (3.5-5.1)
[2017-04-02 06:20] LABS: HEMATOCRIT 33.2 % (35.0-45.0); HEMOGLOBIN 10.6 gm/dL (12.0-16.0); MEAN CELL VOLUME 84.8 FL (83-96); MEAN CORPUSCULAR HEMOGLOBIN 27.1 PG (28-34); RED BLOOD COUNT 3.91 X10e (3.90-5.30); RED CELL DISTRIBUTION WIDTH 15.9 % (11.0-15.5); WHITE BLOOD COUNT 8.5 X10e3 (4.0-10.5)
[2017-04-02 06:59] LABS: CALCIUM SERUM 7.9 mg/dL (8.4-10.2); CREATININE SERUM 0.6 mg/dL (0.6-1.4); MAGNESIUM 1.9 mg/dL (1.6-3.0); PHOSPHOROUS 2.3 mg/dL (2.5-4.6); POTASSIUM 3.6 mmol/L (3.5-5.1)
[2017-04-02] MEDS ORDERED: ZOFRAN PO (13:27)
[2017-04-02] MEDS ORDERED: LORTAB 5-325 M1 EACH PO (13:27)
== END 2017-04-02 14:14 | DRG 389 ==
LOC: CED 12:08 → CEDOF 16:50 → C3A PCU 16:50 → CEDOF 18:43 → CED 18:43 → C3A PCU 18:47 → CEDOF 18:47 → C3A PCU 18:47
PROVIDERS: Emergency Medicine; Family Medicine; Internal Medicine
PROC: 02HV33Z Insertion of Infusion Device into Superior Vena Cava, Percutaneous Approach (ICD-10-PCS; principal; 2017-03-31)
PROC: B518YZA Fluoroscopy of Superior Vena Cava using Other Contrast, Guidance (ICD-10-PCS; 2017-03-31)
PROC: B548ZZA Ultrasonography of Superior Vena Cava, Guidance (ICD-10-PCS; 2017-03-31)
DX: K56.60 Unspecified intestinal obstruction (principal); E87.2 Acidosis; E44.0 Moderate protein-calorie malnutrition; K81.0 Acute cholecystitis; E87.1 Hypo-osmolality and hyponatremia; K57.92 Diverticulitis of intestine, part unspecified, without perforation or abscess without bleeding; Z95.0 Presence of cardiac pacemaker; Z66 Do not resuscitate; E03.9 Hypothyroidism, unspecified; Z91.14 Patient's other noncompliance with medication regimen; E83.39 Other disorders of phosphorus metabolism; Z68.21 Body mass index [BMI] 21.0-21.9, adult; E83.51 Hypocalcemia
CPT/HCPCS: 36415; 74022; 74177; 76705; 76937; 77001; 78226; 80048; 80053; 80076; 80202; 81003; 82150; 82550; 82947; 83605; 83690; 83735; 84100; 84443; 84478; 84481; 84484; 85025; 85027; 87040; 93005; 96361; 96374; 99285; A9537; C1751; C9113; J1650; J2270; J2405; J2543; J3370; Q9967